=== PATIENT | female | born 1985 | race Caucasian/White ===

== ENCOUNTER 2016-09-10 19:25 | Emergency (ER) | payer OTHER ==
[~2016-09-10] VITALS: Ht 165.1 cm; Wt 72.7 kg
[2016-09-10 19:28] VITALS: BP 122/67; PULSE 70; RESP 18; O2SAT 99
[2016-09-10] MEDS ORDERED: Ketorolac 30 mg/mL 2 mL Inj IM ONE (19:45)
[2016-09-10] MEDS ORDERED: oxyCODONE-Acetamin 5-325 mg Tablet PO ONE (19:45)
--- NOTE | 2016-09-10 19:51 | ED.REPORT ---
HPI-Extremity Problem Lower Date of Service Sep 10, 2016 ED Provider: Rodolfo Corral DO A healthy 30 year old female presents to the ED with left proximal thigh pain onset today while at the gym. The patient was doing box jumps when she missed her landing and fell, hitting the front of her hip on the box. She continued to work-out but her pain progressively got worse throughout the evening. The patient took old hydrocodone one hour prior to arrival, with little relief. Nursing Notes Stated Complaint: HIP PAIN Chief Complaint: Extremity Trauma Nursing Notes Reviewed: Yes Allergies: Coded Allergies: No Known Allergies (Unverified , 09/10/16) General Time Seen by MD: 19:39 Chief Complaint Thigh injury left Hx Obtained From: Patient Arrived By: Walk-in Onset Occurred: 5 - 8 hours ago Symptom Duration: Since onset Caused by: Accidental, Sports injury Location: : Thigh left Quality: Painful Severity: Current: Moderate Severity: Maximum: Moderate Associated with: Denies: Fever Pertinent Negative: Relieved by nothing Immunizations: Tetanus up to date Recent Healthcare: No recent doctor visit Similar Sx Previous: No Past Medical History Past Medical History None reported Past Surgical History None reported Smoking History Unknown if Ever Smoker Social History Other Social History: Good social support Ambulatory Status Independent Review of Systems Constitutional: Denies: Fever Musculoskeletal: Reports: Extremity pain (Left proximal thigh) Complete sys rev & neg: except as marked. Respiratory: Denies: Non-productive cough, Shortness of breath GI: Denies: Vomiting Physical Exam Initial Vital Signs Vital Signs (First) Date Time Temp Pulse Resp B/P Pulse Ox O2 Delivery O2 Flow Rate FiO2 09/10/16 19:28 36.4 70 18 122/67 99 Room Air Initial VS: Reviewed Head / Eyes: Atraumatic, Normocephalic ENT: Conjunctiva normal, No scleral icterus Neck: Supple, Full range of motion Respiratory: Breath sounds normal, Clear to auscultation, No respiratory distress Cardiovascular: Regular rate & rhythm, Heart sounds normal Skin: Warm, Dry, No cyanosis Neurologic: Alert, Oriented, Nonfocal Psychiatric: Mood/affect normal, Behavior normal, Normal thought content Lower Extremity / Pelvis / MS: Vascular intact (Strong pulses) Left Hip: Negative: Tenderness present... Left Thigh: Positive: Tenderness present... (Proximal thigh) Weakness with hip flexion secondary to pain and possible muscle tear General/Constitutional: Awake, Alert, No acute distress Interpretation & Diagnostics X-Ray Interpretation Xray Interpretation: IMPRESSION: No acute bony injuries of the pelvis. Dictated by: Flavio Mandel M.D. on 09/10/2016 at 20:10 Study Performed: 1 View X-Ray Ordered: Pelvis Interpretation / Wet Read by: Interpret - Radiologist Re-Eval/Medical Decision Med Decision/Clinical Course I suspect that she has a hip flexor strain. No signs of an avulsion fracture on x-ray. No low back pain so I doubt she will hold off her iliopsoas muscle. Of note she was able to continue working out some more than likely she strained it is now inflamed. Recommend rest, NSAIDs short course of Percocet. Routine opiate warnings. Crutches. Orthopedic and primary care follow-up. Re-Evaluation/Progress : Time of Eval: 20:00 Patient Status: Condition improved Re-Evaluation/Progress Note: Patient rechecked. Additional history obtained. Discussed with patient x-ray results, diagnosis, and plan for discharge. Follow-up and return to the ER instructions given. Patient agrees with plan for care and all questions were addressed. Counseled Regarding: Diagnosis, Need for follow-up, When/why to return to ED Discharge & Departure Impression: Primary Impression: Strain of flexor muscle of left hip Encounter type: initial encounter Qualified Code: S76.012A - Strain of muscle, fascia and tendon of left hip, initial encounter Disposition: Home Discharge Condition All VS Reviewed: Yes Condition: Stable Patient Instructions: Crutch Instructions (ED), Muscle Strain (ED) Additional Instructions: The x-ray does not show a fracture. I suspect that you would have either strained or possibly torn a hip flexor. Take 1-2 Percocet every 6 hours as needed for severe pain. Take Motrin 600 mg every 8 hours as needed for moderate pain. Use the crutches for all ambulation. Contact referral orthopedic surgeon for follow-up next week. You may also follow-up with her primary care physician. If symptoms persist you may need an MRI so follow-up is essential. Do not drive or drink alcohol or consume acetaminophen while taking the Percocet. Referrals: Eugene Parada DO [facility] Scribe Attestation Portions of this note were transcribed by Ange Richey. I, Dr. Corral, personally performed the history, physical exam, and medical decision-making; I reviewed and confirmed the accuracy of the information in the transcribed note. Signed by: Gurpreet Vallejo, 09/10/2016, 21:36 copies to: Eugene Parada DO; [facility] Rodolfo Corral DO Sep 10, 2016 19:51 ANGE RICHEY Sep 10, 2016 20:04
--- NOTE | 2016-09-10 20:16 | DRSVH ---
PROCEDURE: X-RAY PELVIS, ONE OR TWO VIEWS ([id number]) INDICATIONS: 30 year-old female with left hip flexor injury during exercise. TECHNIQUE: One view(s) of the pelvis acquired. COMPARISON: None. FINDINGS: Bones: No fractures or dislocations. No suspicious bony lesions. Soft tissues: Visualized bowel gas pattern is normal. No suspicious soft tissue calcifications. IMPRESSION: No acute bony injuries of the pelvis. Dictated by: Flavio Mandel M.D. on 09/10/2016 at 20:10 Approved by: Flavio Mandel M.D. on 09/10/2016 at 20:10
[2016-09-10 20:57] VITALS: BP 105/62; PULSE 64; RESP 16; O2SAT 100
== END 2016-09-10 20:58 | disposition home or self-care (01) ==
LOC: SED 19:25
DX: S76.012A Strain of muscle, fascia and tendon of left hip, initial encounter (principal); W18.30XA Fall on same level, unspecified, initial encounter; Y92.39 Other specified sports and athletic area as the place of occurrence of the external cause; Y93.A9 Activity, other involving cardiorespiratory exercise; Y99.8 Other external cause status
CPT/HCPCS: 72170; 96372; 99284; J1885